=== PATIENT | male | born 1955 | race American Indian/Alaskan Native ===

== ENCOUNTER 2019-05-30 11:21 | Emergency (ER) | payer SELFPAY ==
[2019-05-30 11:27] VITALS: BP 137/88
--- NOTE | 2019-05-30 11:32 | Emergency Department Report ---
Blank Doc - Documentation Documentation: 63-year-old male that presents with left subconjunctival hemorrhage after cutt ing rosales. Denies any pain or visual changes. This initial assessment/diagnostic orders/clinical plan/treatment(s) is/are subject to change based on patient's health status, clinical progression and re- assessment by fellow clinical providers in the ED. Further treatment and workup at subsequent clinical providers discretion. Patient/guardians urged not to elope from the ED as their condition may be serious if not clinically assessed and managed. Initial orders include: 1- Patient sent to [facility] for further evaluation and treatment 2- rosales lamp 3- visual test
--- NOTE | 2019-05-30 12:27 | Emergency Department Report ---
[facility] Chief Complaint: Eye Problems Stated Complaint: L EYE REDNESS/IRRITATION Time Seen by Provider: 05/30/19 11:27 Duration: 3 Days Side: Left Severity: mild Symptoms: Yes Eye Redness, No Eye Itching, No Eye Pain, No Mucous Drainage, No Purulent Drainage, No Blurred Vision, No Preceding URI, No H/O Allergic Rhinitis, No Contact Lens Use, No Trauma, No Fever, No Headache Other History: this 63-year-old male who presents to ED with redness of the left eye for the past 3 days. Patient states he noticed it 3 days ago and has not gone away. Patient denies eye pain, eye trauma, blurry vision itching to the eyes or any other problems ED Review of Systems ROS: Stated complaint: L EYE REDNESS/IRRITATION Other details as noted in HPI Comment: All other systems reviewed and negative ED Past Medical Hx - Past Medical History Previous Medical History?: Yes Hx Hypertension: Yes (off meds x 4 months) Additional medical history: Tendonitis hands carpal tunnel - Surgical History Past Surgical History?: Yes Additional Surgical History: skin graft - Social History Smoking Status: Never Smoker Substance Use Type: None - Medications Home Medications: Home Medications Medication Instructions Recorded Confirmed Last Taken Type HYDROcodone/APAP 5-325 [[place] 1 each PO Q6HR PRN #20 tablet 04/21/14 Unknown Rx 5/325] Sulfamethoxazole/Trimethoprim 1 each PO BID #20 tablet 04/21/14 Unknown Rx [Bactrim Ds] amLODIPine [Norvasc] 5 mg PO DAILY #30 tab 04/21/14 Unknown Rx cloNIDine [Catapres] 0.1 mg PO BID #60 tablet 04/21/14 Unknown Rx Tobramycin 1 - 2 drops OP BID #5 ml 05/30/19 Unknown Rx [facility] Exam - Exam General: Vital signs noted. No distress. Alert and acting appropriately. Eye Exam: Left Injection, Both EOMI, Neither Chemosis, Neither Abnormal Pupil, Neither Eye Foreign Body, Neither Lid Foreign Body, Neither Mucous Discharge, Neither Purulent Discharge HEENT: No Nasal Congestion, No Pharyngeal Erythema Lungs: Yes Clear Lung Sounds, Yes Good Air Exchange, No Wheezes, No Stridor, No Cough, No Nasal Flaring, No Retractions, No Use of Accessory Muscles Exam: Vision is intact bilaterally, there is no orbital cellulitis or pain or swelling. PERRLA, EOMI bilaterally. 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 Discussed with the patient at this will go away on its own without any problems. Patient has no visual disturbances I discussed the patient is new or worsening symptoms to return to ED immediately Patient's vital signs are stable he's in no distress. Patient is vision is intact, visual acuity test performed, within normal limits. Discussed the patient to follow up with her primary care physician in 3-5 days. Critical care attestation.: If time is entered above; I have spent that time in minutes in the direct care of this critically ill patient, excluding procedure time. ED Disposition Clinical Impression: Subconjunctival hemorrhage Disposition: DC-01 TO HOME OR SELFCARE Is pt being admited?: No Does the pt Need Aspirin: No Condition: Stable Instructions: Subconjunctival Hemorrhage (ED) Additional Instructions: Make sure to follow up with the primary care physician as discussed. Take all your medications as you've been prescribed. If you have any worsening symptoms or develop new symptoms please return to ED immediately. Prescriptions: Tobramycin 1 - 2 drops OP BID #5 ml Referrals: BRIAN BYNUM MD [Staff Physician] - 3-5 Days Forms: Work/School Release Form(ED) Time of Disposition: 12:27
== END 2019-05-30 12:22 | disposition home or self-care (01) ==
LOC: ED 11:21
DX: H11.31 Conjunctival hemorrhage, right eye (principal); I10 Essential (primary) hypertension; Z79.899 Other long term (current) drug therapy
CPT/HCPCS: 99283

== ENCOUNTER 2019-09-17 12:43 | Emergency (ER) | payer MEDICARE ==
[2019-09-17 13:55] VITALS: BP 117/84
--- NOTE | 2019-09-17 15:24 | Event Note ---
ED Screening Note Date of service: 09/17/19 ED Screening Note: This initial assessment/diagnostic orders/clinical plan/treatment(s) is/are subject to change based on patients health status, clinical progression and re- assessment by fellow clinical providers in the ED. Further treatment and workup at subsequent clinical providers discretion. Patient/guardian urged not to elope from the ED as their condition may be serious if not clinically assessed and managed. Initial orders include: R knee injury large supra-patella effusion
--- NOTE | 2019-09-17 16:20 | XRay Report ---
RIGHT KNEE 2 VIEW(S) INDICATION / CLINICAL INFORMATION: MAIN: trauma pain; twisted knee exercising x 3 days; has had knees drained of fluid x 12 yrs COMPARISON: Right knee radiograph 08/02/2013 FINDINGS: BONES / JOINT(S): No acute fracture or subluxation. A calcified fragment adjacent to the superior mar gin of the medial femoral condyle possibly represents a Lali-Stieda lesion. This is unchanged. Moderately advanced tricompartmental osteoarthrosis with extensive chondrocalcinosis in the menisci. Osteophytes are present, largest on the patella. SOFT TISSUES: Large joint effusion. ADDITIONAL FINDINGS: None. IMPRESSION: 1. Moderately advanced tricompartmental osteoarthrosis without significant change in appearance since 08/02/2013. 2. Large suprapatellar joint effusion. 3. Possible Lali-Stieda lesion, which would be an indicator of an old MCL injury. Signer Name: Kian Guzman MD Signed: 09/17/2019 4:15 PM Workstation Name: [id number]
[2019-09-17] MEDS ORDERED: IBUPROFEN 800 MG TAB PO ONE (17:31)
--- NOTE | 2019-09-17 18:19 | Emergency Department Report ---
Blank Doc - Documentation Documentation: I have entered the room 3 times the patient was not dated. Patient was called and I did speak to the patient and instructed the patient to return to the emergency room for further evaluation and treatment. Patient stated that he has to leave and will not return. Patient was educated and instructed of my concerns but stated he can not come back. He left without me examining or treating the patient. Patient was seen by Dr. Dave for initial Triage. Patient eloped.
== END 2019-09-17 17:54 | disposition left against medical advice (07) ==
LOC: ED 12:43
DX: M25.561 Pain in right knee (principal)

== ENCOUNTER 2021-08-07 13:24 | Emergency (ER) | payer MEDICARE ==
[~2021-08-07 13:24] MED LIST: EPINEPHrine 1 MG/10 ML SYRINGE ONE
--- NOTE | 2021-08-07 14:34 | Emergency Department Report ---
ED CPR HPI - General Chief Complaint: Cardiac Arrest/CPR Stated Complaint: CARDIAC ARREST Time Seen by Provider: 08/07/21 13:44 Source: EMS ( EMS documentation not available at time of chart dictation ), RN notes reviewed Mode of arrival: Stretcher Limitations: Altered Mental Status, Physical Limitation - History of Present Illness Initial Comments: The patient was evaluated in the emergency department for symptoms described in the history of present illness. He/she was evaluated in the context of the global COVID-19 pandemic, which necessitated consideration that the patient might be at risk for infection with the virus that causes COVID-19. Institutional protocols and algorithms that pertain to the evaluation of patients at risk for COVID-19 are in a state of rapid change based on information released by regulatory bodies including the CDC and federal and state organizations. These policies and algorithms were followed during the patient's care in the emergency department. Please note that these policies, procedures and recommendations changed on a rapid basis. The patient is a 65-year-old gentleman. This patient is brought to the hospital by emergency medical services as an [id number] cardiac arrest. Patient arrives receiving CPR, with a GCS of 3. History obtained from EMS, as this patient is obtunded and not responsive. EMS reports that they responded to a phone call with a chief complaint of respiratory distress. EMS reports that upon their arrival, the patient "took 5 agonal breaths and stopped breathing." EMS reports that the patient called 911. EMS placed a supraglottic/Juancarlos airway, started CPR, and established IO access in the right lower extremity. EMS further reports that they defibrillated the patient as per [facility] protocol, and after defibrillation, the patient's went into pulseless electrical activity. He received epinephrine x3, and standard ACLS medications. EMS further reports that the patient was in their care for about 35 minutes. At no point time did he have return of spontaneous circulation. Upon arrival to this emergency room, pupils are dilated and do not react to light. The patient has a persistent GCS of 3. Patient received standard ACLS interventions. In spite of the vigorous resuscitation, pulses could not be obtained. Resuscitation efforts are terminated, bedside cardiac ultrasound shows no ventricular activity, and cardiac standstill. The patient's family is subsequently informed. Complaint: stopped breathing -: minute(s) Place: home Initial Findings in the Field: agonal, VTACH/VFIB, PEA Treatments Prior to Arrival: other airway device, chest compressions, defribrillated shocks #, epinephrine mgs # - Related Data Previous Rx's Medication Instructions Recorded Last Taken Type HYDROcodone/APAP 5-325 [[place] 1 each PO Q6HR PRN #20 tablet 04/21/14 Unknown Rx 5/325] Sulfamethoxazole/Trimethoprim 1 each PO BID #20 tablet 04/21/14 Unknown Rx [Bactrim Ds] amLODIPine [Norvasc] 5 mg PO DAILY #30 tab 04/21/14 Unknown Rx cloNIDine [Catapres] 0.1 mg PO BID #60 tablet 04/21/14 Unknown Rx Tobramycin 1 - 2 drops OP BID #5 ml 05/30/19 Unknown Rx Allergies Allergy/AdvReac Type Severity Reaction Status Date / Time No Known Allergies Allergy Verified 04/20/14 19:52 ED Review of Systems ROS: Stated complaint: CARDIAC ARREST Other details as noted in HPI Comment: Unobtainable due to pts medical conditions ED Past Medical Hx - Past Medical History Hx Hypertension: Yes (off meds x 4 months) Additional medical history: Tendonitis hands carpal tunnel - Surgical History Additional Surgical History: skin graft - Social History Smoking Status: Never Smoker Substance Use Type: None - Medications Home Medications: Home Medications Medication Instructions Recorded Confirmed Last Taken Type HYDROcodone/APAP 5-325 [[place] 1 each PO Q6HR PRN #20 tablet 04/21/14 Unknown Rx 5/325] Sulfamethoxazole/Trimethoprim 1 each PO BID #20 tablet 04/21/14 Unknown Rx [Bactrim Ds] amLODIPine [Norvasc] 5 mg PO DAILY #30 tab 04/21/14 Unknown Rx cloNIDine [Catapres] 0.1 mg PO BID #60 tablet 04/21/14 Unknown Rx Tobramycin 1 - 2 drops OP BID #5 ml 05/30/19 Unknown Rx ED Physical Exam - General Limitations: Altered Mental Status, Other General appearance: obtunded - Head Head exam: Present: atraumatic, normocephalic - Eye Eye exam: Present: conjunctival injection. Absent: normal appearance (Pupils are dilated and do not react to light.) - ENT ENT exam: Present: mucous membranes moist. Absent: normal exam (Supraglottic airway noted in) - Neck Neck exam: Present: normal inspection, other (JVD noted bilateral) - Respiratory Respiratory exam: Present: other (Patient is apneic and not breathing). Absent: normal lung sounds bilaterally, respiratory distress - Cardiovascular Cardiovascular Exam: Present: other (The patient is pulseless). Absent: regular rate, normal rhythm - GI/Abdominal GI/Abdominal exam: Present: soft - Rectal Rectal exam: Present: deferred - Extremities Exam Extremities exam: Present: normal inspection, other (Intraosseous line noted in the right lower extremity) - Back Exam Back exam: Present: normal inspection - Neurological Exam Neurological exam: Present: altered, other (GCS of 3, nonverbal) - Skin Skin exam: Present: warm, dry, intact, normal color. Absent: rash ED Medical Decision Making - Medical Decision Making Differential diagnosis, including but not limited to: Pulmonary embolism, acute coronary syndrome, pneumothorax, tamponade, cardiac arrest Critical care attestation.: If time is entered above; I have spent that time in minutes in the direct care of this critically ill patient, excluding procedure time. ED Disposition Clinical Impression: Cardiac arrest Disposition: 20 Is pt being admited?: No Does the pt Need Aspirin: No Condition: Undetermined
== END 2021-08-07 14:00 ==
LOC: EDUNIT# → EDBD → ED 13:24
DX: I46.9 Cardiac arrest, cause unspecified (principal)
CPT/HCPCS: 92950; 99285; J0171